=== PATIENT | female | born 1960 | race Caucasian/White ===

== ENCOUNTER 2023-12-20 09:47 | Inpatient (IN) | payer MEDICARE, OTHER ==
[2023-12-20] MEDS: HEPARIN SODIUM 1,000 UN/ML (10ML VL) IV ONE (09:53)
[2023-12-20] MEDS: METOPROLOL TARTRATE 5 MG/5 ML VIAL IVP STA (09:54)
[2023-12-20] MEDS: ATORVASTATIN 80 MG TAB PO STA (09:55)
[2023-12-20] MEDS ORDERED: HEPARIN SODIUM 1,000 UN/ML (10ML VL) ONE (10:00)
[2023-12-20] MEDS ORDERED: fentaNYL (PF) 50 MCG/ML 2 ML AMP ONE (10:00)
[2023-12-20] MEDS ORDERED: NALOXONE 0.4 MG/ML 1 ML VIAL IV PRN (10:02)
[2023-12-20] MEDS ORDERED: IPRATROPIUM-ALBUTEROL 3 ML NEB INHALATION PRN ×2 (10:02→13:14)
--- NOTE | 2023-12-20 10:02 | ED ---
General Adult HPI - General Chief complaint: Arrhythmia/Palpitations Stated complaint: Stemi Time Seen by Provider: 12/20/23 09:50 Source: patient Mode of arrival: EMS Limitations: no limitations - History of Present Illness Initial comments: 63-year-old female with reported history of COPD not on home O2 who presents the emergency department with flulike symptoms. She reports that she started having chest pain on Sunday which did alleviate. She has been reporting nausea, fatigue, fevers. Chest pain got worse again this morning and patient became short of breath. EMS found the patient to have an oxygen saturation of 88%. She is a current smoker. Denies any cardiac disease. EKG completed which demonstrated ST segment elevation. Patient found to be in A-fib and denies a history of. No sick contacts. Patient did receive 3 SL nitro, 324 chewable aspirin and 4 of Zofran prior to hospital arrival - Related Data Allergies Allergy/AdvReac Type Severity Reaction Status Date / Time No Known Allergies Allergy Verified 12/20/23 09:57 Review of Systems ROS Statement: Those systems with pertinent positive or pertinent negative responses have been documented in the HPI. ROS Other: All systems not noted in ROS Statement are negative. Past Medical History Past Medical History: COPD Additional Past Medical History / Comment(s): neuropathy History of Any Multi-Drug Resistant Organisms: None Reported Past Surgical History: Orthopedic Surgery Past Psychological History: No Psychological Hx Reported Smoking Status: Current every day smoker Past Alcohol Use History: None Reported Past Drug Use History: None Reported General Exam Limitations: no limitations General appearance: alert, cachectic, other (ashen) Head exam: Present: atraumatic, normocephalic, normal inspection Eye exam: Present: normal appearance, PERRL, EOMI. Absent: scleral icterus, conjunctival injection, periorbital swelling ENT exam: Present: normal exam, mucous membranes moist Neck exam: Present: normal inspection. Absent: tenderness, meningismus, lymphadenopathy Respiratory exam: Present: decreased breath sounds. Absent: respiratory distress, wheezes, rales, rhonchi, stridor Cardiovascular Exam: Present: tachycardia, irregular rhythm, normal heart sounds. Absent: systolic murmur, diastolic murmur, rubs, gallop, clicks GI/Abdominal exam: Present: soft, normal bowel sounds. Absent: distended, tenderness, guarding, rebound, rigid Extremities exam: Present: normal inspection, full ROM, normal capillary refill. Absent: tenderness, pedal edema, joint swelling, calf tenderness Back exam: Present: normal inspection Neurological exam: Present: alert, oriented X3, CN II-XII intact Psychiatric exam: Present: normal affect, normal mood Skin exam: Present: warm, dry, intact, normal color. Absent: rash Course Vital Signs 12/20/23 09:49 Temperature 97.4 F L Pulse Rate 134 H Respiratory 20 Rate Blood Pressure 132/106 O2 Sat by Pulse 93 L Oximetry Medical Decision Making - Medical Decision Making Was pt. sent in by a medical professional or institution (, PA, DATA ABSTRACTOR, urgent care, hospital, or prison...) When possible be specific @ -No Did you speak to anyone other than the patient for history (EMS, parent, family, police, friend...)? What history was obtained from this source @ -Spoke with the EMS for history Did you review nursing and triage notes (agree or disagree)? Why? @ -I reviewed and agree with nursing and triage notes Were old charts reviewed (outside hosp., previous admission, EMS record, old EKG, old radiological studies, urgent care reports/EKG's, prison records)? Report findings @ -No old charts were reviewed Differential Diagnosis (chest pain, altered mental status, abdominal pain women, abdominal pain men, vaginal bleeding, weakness, fever, dyspnea, syncope, headache, dizziness, GI bleed, back pain, seizure, CVA, palpatations, mental health, musculoskeletal)? @ -Differential Chest Pain: Stable Angina, Unstable Angina, STEMI, NSTEMI Aortic Dissection, Pneumothorax, Musculoskeletal, Esophageal Spasm GERD, Cholecystitis, Pancreatitis, Zoster, this is not meant to be an all-inclusive list. EKG interpreted by me (3pts min.). @ -Yes and demonstrates tachycardia, possible atrial flutter with a rate of 135. QRS 88. QTc of 385. ST segment elevation V3V6, 2, 3, aVF X-rays interpreted by me (1pt min.). @ -None done CT interpreted by me (1pt min.). @ -None done U/S interpreted by me (1pt. min.). @ -None done What testing was considered but not performed or refused? (CT, X-rays, U/S, labs)? Why? @ -None What meds were considered but not given or refused? Why? @ -None Did you discuss the management of the patient with other professionals (professionals i.e. , PA, DATA ABSTRACTOR, lab, RT, psych nurse, transition social worker, contingents supervisor, teacher, supervisory cbp officer, adult protective caseworker)? Give summary @ -Spoke with Dr. Yi who is in the emergency department to evaluate the patient Was smoking cessation discussed for >3mins.? @ -No Was critical care preformed (if so, how long)? @ -40 minutes for STEMI management Were there social determinants of health that impacted care today? How? (Homelessness, low income, unemployed, alcoholism, drug addiction, transportation, low edu. Level, literacy, decrease access to med. care, [facility], rehab)? @ -No Was there de-escalation of care discussed even if they declined (Discuss DNR or withdrawal of care, Hospice)? DNR status @ -No What co-morbidities impacted this encounter? (DM, HTN, Smoking, COPD, CAD, Cancer, CVA, ARF, Chemo, Hep., AIDS, mental health diagnosis, sleep apnea, morbid obesity)? @ -Tobacco abuse, COPD Was patient admitted / discharged? Hospital course, mention meds given and route, prescriptions, significant lab abnormalities, going to OR and other pertinent info. @ -EKG transmitted by EMS. STEMI activation completed prior to hospital arrival. Dr. Yi is in the emergency department during the patient's arrival. She is placed in trauma 2. Hooked on continuous pulse ox and cardiac monitoring. Patient saturating 96% on 3 L. IV is established. Laboratory studies are conducted. Patient continues to have ST segment elevation on EKG. Risks and benefits of immediate catheterization are discussed. Patient was agreeable to this and thus signed consent. She was given 80 mg of atorvastatin, 5 mg of IV Lopressor and 4000 units of heparin as she has no contraindications. I did speak with Dr. Modi for the admission. Patient was taken up to [facility] in stable condition Undiagnosed new problem with uncertain prognosis? @ -No Drug Therapy requiring intensive monitoring for toxicity (Heparin, Nitro, Insulin, Cardizem)? @ -heparin Were any procedures done? @ -No Diagnosis/symptom? @ -Chest pain, STEMI, hypoxic respiratory failure Acute, or Chronic, or Acute on Chronic? @ -Acute Uncomplicated (without systemic symptoms) or Complicated (systemic symptoms)? @ -Complicated Side effects of treatment? @ -No Exacerbation, Progression, or Severe Exacerbation? @ -Bleeding Poses a threat to life or bodily function? How? (Chest pain, [place], [place], pneumonia, PE, COPD, DKA, ARF, appy, cholecystitis, CVA, Diverticulitis, Homicidal, Suicidal, threat to staff... and all critical care pts) @ -Yes as patient is having a STEMI Disposition Clinical Impression: STEMI (ST elevation myocardial infarction), Hypoxia, Afib Disposition: ADMITTED IP TO THIS [facility] Condition: Serious Is patient prescribed a controlled substance at d/c from ED?: No Time of Disposition: 10:02 Decision to Admit Reason: Admit from EC Decision Date: 12/20/23 Decision Time: 10:02
[2023-12-20] MEDS: MIDAZOLAM 2 MG/2 ML VIAL IVP ONE (10:11)
[2023-12-20] MEDS: LIDOCAINE 1% INJ 10MG/ML (20 ML MDV) SQ ONE (10:13)
[2023-12-20] MEDS: VERAPAMIL SYRINGE (5 MG/10 ML) INTRAARTER ONE (10:15)
--- NOTE | 2023-12-20 10:23 | P.CRDCN ---
History of Present Illness Reason for Consult (text): STEMI History of present illness: This is a 63-year-old female with past medical history of tobacco use. No previous cardiac history. Patient developed chest pain on Sunday but today it became much worse. She has had a fever and vomiting at home. She is resides in [place] but is here visiting her brother. EMS was called and patient was given aspirin 324 mg and 3 nitroglycerin. Pain is a #4. She also received Zofran. Blood pressure 131/103, sinus tachycardia in the 140s. EKG: Sinus with ST elevation in inferior and lateral leads Home cardiac medications: None Review Of Systems: At the time of my exam: CONSTITUTIONAL: Reports fever or chills. HEENT: Denies blurred vision, vision changes, or eye pain. Denies hemoptysis CARDIOVASCULAR: Reports chest pain. Denies orthopnea. Denies PND. Denies palpitations RESPIRATORY: Denies shortness of breath. GASTROINTESTINAL: Denies abdominal pain. Reports nausea or vomiting. HEMATOLOGIC: Denies bleeding disorders. GENITOURINARY: Denies any blood in urine. SKIN: Denies puritis. Denies rash. Physical examination: Gen: This is a thin 63-year-old female appears to be quite uncomfortable and ill-appearing VS: reviewed HEENT: Head is atraumatic, normocephalic. Pupils equal, round. Sclerae is anicteric. NECK: Supple. No JVD. LUNGS: No wheezes or rhonchi. No intercostal retractions. HEART: Regular rate and rhythm. Tachycardic ABDOMEN: Soft No tenderness. EXTREMITIES: No pedal edema. No calf tenderness. NEUROLOGICAL: Patient is awake, alert and oriented x3. Assessment: STEMI Hypertension Tobacco use and dependence Plan: Patient will be taken for urgent LHC with Dr. Vann. Obtain 2-D echocardiogram and Doppler study to assess cardiac structure and function Further recommendations to follow based upon clinical course Thank you kindly for this consultation. Nurse practitioner note has been reviewed, I agree with documented findings and plan of care. Patient was seen and examined. Medications and Allergies Allergies Allergy/AdvReac Type Severity Reaction Status Date / Time No Known Allergies Allergy Verified 12/20/23 09:57
[2023-12-20] MEDS: IOPAMIDOL-370 200ML BTL INJ ONE (10:26)
[2023-12-20] MEDS: IV FLUID CONTINUATION 450 ML IV ONE (10:27)
--- NOTE | 2023-12-20 10:32 | P.CARDCATH ---
Date of Procedure: 12/20/23 Anesthesia: MAC Description of Procedure: Indication: Acute inferolateral myocardial infarction 63-year-old lady who has been feeling poorly for the last 3 days developed progressively worsening chest pain that was suddenly severe at this morning called the EMS and came to the ER as a STEMI. An EKG transmitted from the field showed sinus tachycardia with ST segment elevation in the inferolateral leads. I evaluated the patient in the emergency room she was still having chest d iscomfort while the EKG changes have improved somewhat. I advised her to undergo cardiac catheterization for further evaluation and I explained to her risk benefits and alternatives. Procedure note: After obtaining informed consent left heart catheterization and coronary angiogram were performed via the right radial artery using standard Justice catheters patient tolerated the procedure well without any Optivate complications patient will have a TR band for hemostasis. Patient received heparin already in the emergency room and received verapamil per protocol. Right radial artery access was obtained using Seldinger technique 6 Romanian sheath was placed catheters and wires were floated to the ascending aorta under fluoroscopic guidance tolerated the procedure well without any obvious obvious immediate complications total sedation time was 10 minutes. Findings: Hemodynamics left ventricular end-diastolic pressure is 22 mm there is no significant gradient across aortic valve #2 left ventriculogram left ventricular arm is not performed #3 angiographic data: Right coronary artery is a large dominant vessel and is free of significant stenosis left main coronary artery is a normal size vessel and is free of disease divides into left anterior descending coronary artery and circumflex coronary artery circumflex coronary artery and its branches are free of significant stenosis LAD is a large vessel that wraps around the apex of the heart there is an area of plaque rupture with 30 to 40% stenosis just past the origin of the diagonal branch. Flow is somewhat sluggish in the LAD and on fluoroscopy left ventricle is not penelope vigorously in fact only the base of the ventricle is moving. Conclusions: Plaque rupture in the mid LAD without totally closed vessel. Angiographic data was reviewed by Dr. Wilson the on-call admissions director who felt that the patient does not need intervention of the LAD at this time and that her management is going to be with medical therapy. I will admit her to hospital obtain a 2D echo to evaluate LV function and aspirin beta-blockers Plavix statin and JUNIOR inhibitors. Prognosis is guarded
[2023-12-20 10:33] LABS: Basophils % (A) 0 %; Eosinophils % (A) 0 %; HCT 44.5 % (34.0-46.0); HGB 14.8 gm/dL (11.4-16.0); Lymphocytes # (A) 1.5 k/uL (1.0-4.8); Lymphocytes % (A) 6 %; MCH 32.1 pg (25.0-35.0); MCHC 33.2 g/dL (31.0-37.0); MCV 96.7 fL (80.0-100.0); Mean Platelet Volume 12.5; Monocytes # (A) 1.6 k/uL (0-1.0); Monocytes % (A) 6 %; Neutrophils # (A) 24.3 k/uL (1.3-7.7); Neutrophils % (A) 87 %; Platelet Count 251 k/uL (150-450); RBC 4.61 m/uL (3.80-5.40); RDW 12.7 % (11.5-15.5); WBC 27.8 k/uL (3.8-10.6)
[2023-12-20 10:51] LABS: ALT 23 U/L (4-34); AST 75 U/L (14-36); African American GFR (CKD) >90 (>60 ml/min/1.73 sqM); Albumin 4.5 g/dL (3.5-5.0); Alkaline Phosphatase 83 U/L (38-126); Anion Gap 12 mmol/L; Blood Urea Nitrogen 36 mg/dL (7-17); Calcium 10.9 mg/dL (8.4-10.2); Carbon Dioxide 28 mmol/L (22-30); Chloride 102 mmol/L (98-107); Glucose 206 mg/dL (74-99); Non-African American GFR(CKD) 83 (>60 ml/min/1.73 sqM); Potassium 3.3 mmol/L (3.5-5.1); Sodium 142 mmol/L (137-145); Total Bilirubin 0.9 mg/dL (0.2-1.3); Total Protein 7.6 g/dL (6.3-8.2)
[2023-12-20] MEDS: IV FLUID CONTINUATION 1,000 ML IV ONE (10:53)
[2023-12-20] MEDS: ONDANSETRON 4 MG/2 ML VIAL ONE (11:09)
[2023-12-20 11:45] LABS: Large Platelets Present; Stomatocytes Present
[2023-12-20] MEDS: CLOPIDOGREL 75 MG TAB PO STA (12:30)
[2023-12-20] MEDS: METOPROLOL TARTRATE 25 MG TAB PO STA (12:31)
--- NOTE | 2023-12-20 13:17 | P.HPIM ---
History of Present Illness H&P Date: 12/20/23 History of present illness; patient is a 63-year-old lady with past medical history significant for tobacco addiction, COPD who presented the hospital for chest pain and shortness of breath. Patient is a resident of [place] and is currently visiting his brother who lives in [place]. Patient stated that she was all right when on Sunday started experiencing chest pain that was central in location, intermittent, nonradiating. No aggravating or relieving factors for the chest pain. Chest pain did resolve Sunday but this morning she woke up with worsening chest pain. Patient also complaining of nausea and fatigue. There was no complaint of palpitation. Patient was complaining of shortness of breath. Patient also having fevers at home. Because of the symptoms, patient was brought to the ER Initial lab work done in the ER showed WBC 27.8, hemoglobin 14.8, platelet count 251, sodium 142, potassium 3.3, BUN 13, creatinine 0.77, glucose 206, calcium 10.9, AST 75, troponin 5.170 Influenza A not detected Influenza B not detected RSV not detected COVID-19 not detected EKG done in the ER showed heart rate of 135, ST segment elevation in leads II, III, aVF, V4 V5 and V6 Base Ply Hand was activated and patient was brought to Base [facility] Patient admitted to internal medicine service REVIEW OF SYSTEMS: CONSTITUTIONAL: No fever, no malaise, no fatigue. HEENT: No recent visual problems or hearing problems. Denied any sore throat. CARDIOVASCULAR: As mentioned above PULMONARY: As mentioned above GASTROINTESTINAL: No diarrhea, no nausea, no vomiting, no abdominal pain. NEUROLOGICAL: No headaches, no weakness, no numbness. HEMATOLOGICAL: Denies any bleeding or petechiae. GENITOURINARY: Denies any burning micturition, frequency, or urgency. MUSCULOSKELETAL/RHEUMATOLOGICAL: Denies any joint pain, swelling, or any muscle pain. ENDOCRINE: Denies any polyuria or polydipsia. The rest of the 14-point review of systems is negative. PHYSICAL EXAMINATION: GENERAL: The patient is alert and oriented x3, not in any acute distress. Well developed, well nourished. HEENT: Pupils are round and equally reacting to light. EOMI. No scleral icterus. No conjunctival pallor. Normocephalic, atraumatic. No pharyngeal erythema. No thyromegaly. CARDIOVASCULAR: S1 and S2 present. No murmurs, rubs, or gallops. PULMONARY: Chest is clear to auscultation, no wheezing or crackles. ABDOMEN: Soft, nontender, nondistended, normoactive bowel sounds. No palpable organomegaly. MUSCULOSKELETAL: No joint swelling or deformity. EXTREMITIES: No cyanosis, clubbing, or pedal edema. NEUROLOGICAL: Gross neurological examination did not reveal any focal deficits. SKIN: No rashes. Assessment and plan Acute inferior wall IN COPD Tobacco addiction Monitor vital signs Monitor CBC Monitor CMP Continue telemetry monitoring Serial troponin Ordered D-dimer Ordered 2D echo Currently on heparin Base Ply Hand activated. Cardiology consulted Labs and medication were reviewed.. Continue same treatment. Continue with symptomatic treatment. Resume home medication. Monitor labs and vitals. DVT and GI prophylaxis. Further recommendations as per clinical course of the patient Dictation was produced using [employer] dictation software. please excuse any grammatical, word or spelling errors. Past Medical History Past Medical History: COPD Additional Past Medical History / Comment(s): neuropathy History of Any Multi-Drug Resistant Organisms: None Reported Past Surgical History: Orthopedic Surgery Past Psychological History: No Psychological Hx Reported Smoking Status: Current every day smoker Past Alcohol Use History: None Reported Past Drug Use History: None Reported Medications and Allergies Allergies Allergy/AdvReac Type Severity Reaction Status Date / Time No Known Allergies Allergy Verified 12/20/23 09:57 Physical Exam Vitals: Vital Signs Temp Pulse Resp BP Pulse Ox 12/20/23 09:58 124 H 18 121/89 92 L 12/20/23 09:49 97.4 F L 134 H 20 132/106 93 L Intake and Output 12/19/23 12/20/23 12/20/23 22:59 06:59 14:59 Intake Total 100 Balance 100 Intake: IV 100 Other: Weight 52.163 kg Results CBC & Chem 7: 12/20/23 10:08 12/20/23 10:08 Labs: Abnormal Lab Results - Last 24 Hours (Table) 12/20/23 12/20/23 12/20/23 Range/Units 10:08 10:08 10:08 WBC 27.8 H (3.8-10.6) k/uL Neutrophils # 24.3 H (1.3-7.7) k/uL Monocytes # 1.6 H (0-1.0) k/uL Potassium 3.3 L (3.5-5.1) mmol/L BUN 36 H (7-17) mg/dL Glucose 206 H (74-99) mg/dL Calcium 10.9 H (8.4-10.2) mg/dL AST 75 H (14-36) U/L Troponin I 5.170 H* (0.000-0.034) ng/mL
[2023-12-20] MEDS: ACETAMINOPHEN TAB 500 MG TAB ONE (14:04)
--- NOTE | 2023-12-20 15:17 | XR ---
EXAMINATION TYPE: XR chest 2V DATE OF EXAM: 12/20/2023 3:12 PM CLINICAL INDICATION: Female, 63 years old with history of Shortness of breath; COMPARISON: None TECHNIQUE: XR chest 2V Frontal view of the chest. FINDINGS: Lungs/Pleura: Scattered subtle reticular and hazy opacities. No evidence of pneumothorax, focal conso lidation or pleural effusion. Pulmonary vascularity: Unremarkable. Heart/mediastinum: Cardiomediastinal silhouette is unremarkable. Musculoskeletal: No acute osseous pathology. There is fixation hardware in the lower cervical spine. IMPRESSION: Subtle scattered opacities which may represent an atypical pneumonia.
[2023-12-20 16:25] LABS: Partial Thromboplastin Time 23.3 sec (22.0-30.0); Prothrombin Time 10.8 sec (10.0-12.5)
[2023-12-20] MEDS: METOPROLOL TARTRATE 25 MG TAB PO SCH (17:12)
[2023-12-20] MEDS: POTASSIUM CHLORIDE ER 20 MEQ TAB.ER PO STA (17:12)
[2023-12-20] MEDS: HYDROcodone/APAP 5-325MG 1 EACH TAB PO PRN (17:13)
[2023-12-20] MEDS: ONDANSETRON 4 MG/2 ML VIAL IVP PRN (17:48)
[2023-12-20] MEDS: DOXYCYCLINE 100 MG in SODIUM CHLORIDE 0.9% 100 ML IVPB SCH (20:36)
[2023-12-20] MEDS: ATORVASTATIN 40 MG TAB PO SCH (20:36)
[2023-12-20] MEDS: SYMBICORT 80-4.5 MCG INHALER INHALATION SCH (20:49)
[2023-12-20 22:03] LABS: Appearance,Urine Clear (Clear); Bacteria,Urine Rare /hpf; Bilirubin,Urine Negative (Negative); Blood,Urine Moderate (Negative); Color,Urine Yellow; Glucose,Urine (UA) Negative (Negative); Ketones,Urine Negative (Negative); Leukocyte Esterase,Urine Negative (Negative); Mucus,Urine Rare /hpf; Nitrite,Urine Positive (Negative); PH, Urine 6.5 (5.0-8.0); Protein,Urine 3+ (Negative); RBC,Urine 6 /hpf (0-5); Squamous Epithelial Cell,Urine 1 /hpf (0-4); Urobilinogen,Urine <2.0 mg/dL (<2.0); WBC,Urine <1 /hpf (0-5)
[2023-12-20 22:08] LABS: Specific Gravity,Urine >1.050 (1.001-1.035)
--- NOTE | 2023-12-20 22:53 | CT ---
EXAMINATION TYPE: CT angio chest DATE OF EXAM: 12/20/2023 COMPARISON: Radiograph 12/20/2023 HISTORY: 63-year-old female Elevated dimer with chest pain TECHNIQUE: Contiguous axial scanning of the chest after the administration of 100 mL of Isovue 370. Coronal/sagittal MIP reconstructions performed. CT DLP: 206.2mGycm. Automatic exposure control utilized for a dose reduction. FINDINGS: The heart is upper limits of normal in size with trace anterior basilar pericardial fluid. No flatten ing of the interventricular septum though there is refluxing contrast into the hepatic veins. Aorta normal caliber with aberrant direct takeoff of the nondominant left vertebral artery directly f rom the aortic arch. Some scattered mediastinal and hilar lymph nodes measuring up to 1.6 cm particularly in the hilar reg ions. Satisfactory opacification of the pulmonary arterial system without evidence for pulmonary embolus. Dependent secretions within the lower trachea. Moderate diffuse bronchial wall thickening. Moderate to advanced upper lung emphysema. Some septal li claudia in the upper lungs. Multifocal groundglass change throughout the lungs, left greater than right. No pleural effusion. Nodular thickening left adrenal gland measuring up to 1.5 cm. Statistically representing an underlyin g adrenal adenoma. Bones: Levoconvex scoliosis centered along the upper third thoracic spine. IMPRESSION: 1. COPD with moderately advanced emphysema. No pulmonary embolus identified. 2. Multifocal patchy groundglass infiltrates throughout the lungs, left greater than right. 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 3. Scattered mediastinal and hilar lymphadenopathy measuring up to 1.6 cm likely reactive/post inflam matory. Three-month follow-up CT chest to ensure stability/resolution.
[2023-12-21 01:44] LABS: Chol/HDL Ratio 1.91 Ratio; LDL Cholesterol,Calculated 56.6 mg/dL (0.0-131.0)
[2023-12-21 08:22] LABS: Basophils % (A) 0 %; Eosinophils # (A) 0.1 k/uL (0-0.7); Eosinophils % (A) 0 %; HCT 43.7 % (34.0-46.0); HGB 14.2 gm/dL (11.4-16.0); Lymphocytes # (A) 1.7 k/uL (1.0-4.8); Lymphocytes % (A) 6 %; MCHC 32.4 g/dL (31.0-37.0); MCV 98.7 fL (80.0-100.0); Mean Platelet Volume 11.5; Monocytes # (A) 1.4 k/uL (0-1.0); Monocytes % (A) 5 %; Neutrophils % (A) 87 %; Platelet Count 234 k/uL (150-450); RBC 4.43 m/uL (3.80-5.40); RDW 12.5 % (11.5-15.5); WBC 27.6 k/uL (3.8-10.6)
[2023-12-21 08:43] LABS: ALT 28 U/L (4-34); AST 55 U/L (14-36); African American GFR (CKD) >90 (>60 ml/min/1.73 sqM); Albumin 3.5 g/dL (3.5-5.0); Alkaline Phosphatase 65 U/L (38-126); Anion Gap 4 mmol/L; Blood Urea Nitrogen 38 mg/dL (7-17); Calcium 9.7 mg/dL (8.4-10.2); Carbon Dioxide 27 mmol/L (22-30); Chloride 108 mmol/L (98-107); Glucose 142 mg/dL (74-99); Non-African American GFR(CKD) >90 (>60 ml/min/1.73 sqM); Potassium 3.8 mmol/L (3.5-5.1); Sodium 139 mmol/L (137-145); Total Bilirubin 0.7 mg/dL (0.2-1.3); Total Protein 6.2 g/dL (6.3-8.2)
[2023-12-21] MEDS: LOSARTAN 25 MG TAB PO SCH (09:09)
[2023-12-21] MEDS: CLOPIDOGREL 75 MG TAB PO SCH (09:09)
[2023-12-21] MEDS: ASPIRIN 81 MG PO SCH (09:09)
[2023-12-21] MEDS: METOPROLOL TARTRATE 25 MG TAB PO STA (09:24)
--- NOTE | 2023-12-21 10:31 | CA ---
Transthoracic Echo Report Name: Alida Helton Age: 63 Gender: F : 1960 Exam Date: 12/20/2023 10:43 Exam Location: [facility] Ht (in): 66 Wt (lb): 115 Ordering Physician: Gloria Rousseau Attending/Referring Phys: [id number], Onelia Carousel Attendant Bethany Narayan RDCS Procedure CPT: Indications: LVF Cardiac Hx: Technical Quality: Technically difficult study Contrast 1: Definity Total Dose (mL): 2 Contrast 2: Total Dose (mL): MEASUREMENTS (Male / Female) Normal Values 2D ECHO LVOT Diameter 2.0 cm LV Diastolic Volume MOD BP 136.7 cm??? 67 - 155 / 56 - 104 cm??? LV Systolic Volume MOD BP 100.0 cm??? 22 - 58 / 19 - 49 cm??? LV Ejection Fraction MOD BP 26.9 % >= 55 % LV Cardiac Index MOD BP 2110.4 cm???/min???m??? LV Diastolic Volume MOD 4C 119.0 cm??? LV Systolic Volume MOD 4C 92.6 cm??? LV Ejection Fraction MOD 4C 22.1 % LV Cardiac Index MOD 4C 1512.3 cm???/min???m??? LV Diastolic Length 4C 7.3 cm LV Systolic Length 4C 7.2 cm LV Diastolic Volume MOD 2C 141.6 cm??? LV Systolic Volume MOD 2C 107.3 cm??? LV Ejection Fraction MOD 2C 24.2 % LV Cardiac Index MOD 2C 1969.2 cm???/min???m??? LV Diastolic Length 2C 8.2 cm LV Systolic Length 2C 7.2 cm LA Volume 25.8 cm??? 18 - 58 / 22 - 52 cm??? LA Volume Index 16.7 cm???/m??? 16 - 28 cm???/m??? M-MODE LV Diastolic Diameter MM 5.2 cm 4.2 - 5.9 / 3.9 - 5.3 cm LV Systolic Diameter MM 4.4 cm LV Cardiac Index MM Teich 2597.3 cm???/min???m??? IVS Diastolic Thickness MM 0.9 cm 0.6 - 1.0 / 0.6 - 0.9 cm LVPW Diastolic Thickness MM 1.2 cm 0.6 - 1.0 / 0.6 - 0.9 cm LV Relative Wall Thickness MM 0.4 0.24 - 0.42 / 0.22 - 0.42 LV Mass Index MM 137.4 g/m??? 49 - 115 / 43 - 95 g/m??? DOPPLER AV Peak Velocity 61.9 cm/s AV Peak Gradient 1.5 mmHg AV Mean Velocity 42.1 cm/s AV Mean Gradient 0.8 mmHg AV Velocity Time Integral 8.1 cm LVOT Peak Velocity 48.7 cm/s LVOT Peak Gradient 0.9 mmHg LVOT Velocity Time Integral 8.1 cm LVOT Stroke Volume 24.3 cm??? LVOT Stroke Volume Index 15.4 ml/m??? LVOT Cardiac Index 1397.9 cm???/min???m??? AV Area Cont Eq vti 3.0 cm??? AV Area Cont Eq pk 2.4 cm??? TR Peak Velocity 354.0 cm/s TR Peak Gradient 50.1 mmHg Right Atrial Pressure 20.0 mmHg Pulmonary Artery Systolic Pressu 70.1 mmHg Right Ventricular Systolic Press 70.1 mmHg PV Peak Velocity 88.1 cm/s PV Peak Gradient 3.1 mmHg FINDINGS Left Ventricle Left ventricular ejection fraction is estimated at 20-25 %. Severely increased left ventricular mass. Mildly increased posterior wall thickness. Severely decreased fractional shortening. Severely decreased midwall fractional shortening. Severely increased left ventricular diastolic volume. Severely increased left ventricular systolic volume. Severely decreased left ventricular ejection fraction with regional variability. Right Ventricle Normal right ventricular size with reduced function. Severe pulmonary hypertension. Right Atrium Normal right atrial size. Left Atrium Severe left atrial dilatation. Mitral Valve Mitral valve thickened. No evidence for mitral valve prolapse. No mitral stenosis. Mild mitral regurgitation. Aortic Valve Trileaflet aortic valve. Aortic valve sclerosis. No aortic stenosis. No aortic regurgitation. Tricuspid Valve Structurally normal tricuspid valve. No tricuspid stenosis. Moderate tricuspid regurgitation. Pulmonic Valve Structurally normal pulmonic valve. No pulmonic stenosis. No pulmonic regurgitation. Pericardium No pericardial effusion. Aorta Aortic annulus normal. CONCLUSIONS Left ventricular ejection fraction 20-25% with mainly apical hypokinesis and basal sparing may be consistent with CAD versus Takotsubo's cardiomyopathy. RVSP 70 Mild mitral regurgitation Moderate tricuspid regurgitation No pericardial effusion Previewed by: Dr. Tera Can DO (Electronically Signed) Final Date: 21 December 2023 10:30
--- NOTE | 2023-12-21 13:00 | P.PN ---
Subjective Progress Note Date: 12/21/23 patient is a 63-year-old lady with past medical history significant for tobacco addiction, COPD who presented the hospital for chest pain and shortness of breath. Patient is a resident of [place] and is currently visiting his brother who lives in [place]. Patient stated that she was all right when on Sunday started experiencing chest pain that was central in location, intermittent, nonradiating. No aggravating or relieving factors for the chest pain. Chest pain did resolve Sunday but this morning she woke up with worsening chest pain. Patient also complaining of nausea and fatigue. There was no complaint of palpitation. Patient was complaining of shortness of breath. Patient also having fevers at home. Because of the symptoms, patient was brought to the ER Initial lab work done in the ER showed WBC 27.8, hemoglobin 14.8, platelet count 251, sodium 142, potassium 3.3, BUN 13, creatinine 0.77, glucose 206, calcium 10.9, AST 75, troponin 5.170 Influenza A not detected Influenza B not detected RSV not detected COVID-19 not detected EKG done in the ER showed heart rate of 135, ST segment elevation in leads II, III, aVF, V4 V5 and V6 [facility] was activated and patient was brought to [facility] Patient admitted to internal medicine service 12/20. Patient seen and examined. Cardiac cath done showed Plaque rupture in the mid LAD without totally closed vessel. Still complains of shortness of breath. Gets short of breath on exertion. CTA chest done showed bilateral pulmonary infiltrates. REVIEW OF SYSTEMS: CONSTITUTIONAL: No fever, no malaise,. CARDIOVASCULAR: No chest pain, no palpitations, no syncope. PULMONARY: As mentioned above GASTROINTESTINAL: No diarrhea, no nausea, no vomiting, no abdominal pain. NEUROLOGICAL: No headaches, no weakness, PHYSICAL EXAMINATION: GENERAL: The patient is alert and oriented x3, not in any acute distress. Ill looking HEENT: Pupils are round and equally reacting to light. EOMI. No scleral icterus. No conjunctival pallor. Normocephalic, atraumatic. No pharyngeal erythema. No thyromegaly. CARDIOVASCULAR: S1 and S2 present. No murmurs, rubs, or gallops. PULMONARY: Diminished breath sounds at bases bilaterally ABDOMEN: Soft, nontender, nondistended, normoactive bowel sounds. No palpable organomegaly. MUSCULOSKELETAL: No joint swelling or deformity. EXTREMITIES: No cyanosis, clubbing, or pedal edema. NEUROLOGICAL: Gross neurological examination did not reveal any focal deficits. SKIN: No rashes. Assessment and plan Acute inferior wall IA Takotsubo cardiomyopathy Bacterial pneumonia COPD Tobacco addiction Monitor vital signs Monitor CBC Monitor CMP Continue telemetry monitoring Cardiac cath done showed Plaque rupture in the mid LAD without totally closed vessel. Continue aspirin, Plavix, Lipitor Continue Lopressor 2D echo done showed LVEF of 25% with mainly apical hypokinesis could be consistent with coronary disease versus Takotsubo cardiomyopathy, mild mitral regurg, moderate tricuspid regurg Continue IV Rocephin and doxycycline Cardiology following Pulmonology consulted Labs and medication were reviewed.. Continue same treatment. Continue with symptomatic treatment. Resume home medication. Monitor labs and vitals. DVT and GI prophylaxis. Further recommendations as per clinical course of the patient Dictation was produced using [employer] dictation software. please excuse any grammatical, word or spelling errors. Objective - Vital Signs Vital signs: Vital Signs Temp 97.8 F 12/21/23 09:06 Pulse 125 H 12/21/23 09:06 Resp 20 12/21/23 09:06 BP 112/71 12/21/23 09:06 Pulse Ox 90 L 12/21/23 09:06 FiO2 Intake & Output 12/20/23 12/21/23 12/21/23 18:59 06:59 18:59 Intake Total 120 1080 Balance 120 1080 Weight 52.163 kg 25 kg Intake: IV 120 Invasive Line 1 10 Invasive Line 3 10 Oral 1080 Other: Voiding Method Diaper Diaper Diaper Incontinent Incontinent Incontinent # Voids 1 1 - Labs CBC & Chem 7: 12/21/23 07:56 12/21/23 07:56 Labs: Abnormal Lab Results - Last 24 Hours (Table) 12/20/23 12/20/23 12/20/23 Range/Units 10:08 10:08 10:08 WBC 27.8 H (3.8-10.6) k/uL Neutrophils # 24.3 H (1.3-7.7) k/uL Monocytes # 1.6 H (0-1.0) k/uL D-Dimer (<0.60) mg/L FEU Potassium 3.3 L (3.5-5.1) mmol/L Chloride (98-107) mmol/L BUN 36 H (7-17) mg/dL Glucose 206 H (74-99) mg/dL Calcium 10.9 H (8.4-10.2) mg/dL AST 75 H (14-36) U/L Troponin I 5.170 H* (0.000-0.034) ng/mL Total Protein (6.3-8.2) g/dL Triglycerides (0.00-149.00) mg/dL HDL Cholesterol (40.00-60.00) mg/dL Ur Specific [place] (1.001-1.035) Urine Protein (Negative) Urine Blood (Negative) Urine Nitrite (Negative) Urine RBC (0-5) /hpf Urine Bacteria (None) /hpf Urine Mucus (None) /hpf 12/20/23 12/20/23 12/20/23 Range/Units 10:08 13:48 19:25 WBC (3.8-10.6) k/uL Neutrophils # (1.3-7.7) k/uL Monocytes # (0-1.0) k/uL D-Dimer 0.60 H (<0.60) mg/L FEU Potassium (3.5-5.1) mmol/L Chloride (98-107) mmol/L BUN (7-17) mg/dL Glucose (74-99) mg/dL Calcium (8.4-10.2) mg/dL AST (14-36) U/L Troponin I (0.000-0.034) ng/mL Total Protein (6.3-8.2) g/dL Triglycerides 152.00 H (0.00-149.00) mg/dL HDL Cholesterol 96.00 H (40.00-60.00) mg/dL Ur Specific [place] >1.050 H (1.001-1.035) Urine Protein 3+ H (Negative) Urine Blood Moderate H (Negative) Urine Nitrite Positive H (Negative) Urine RBC 6 H (0-5) /hpf Urine Bacteria Rare H (None) /hpf Urine Mucus Rare H (None) /hpf 12/21/23 12/21/23 Range/Units 07:56 07:56 WBC 27.6 H (3.8-10.6) k/uL Neutrophils # 24.0 H (1.3-7.7) k/uL Monocytes # 1.4 H (0-1.0) k/uL D-Dimer (<0.60) mg/L FEU Potassium (3.5-5.1) mmol/L Chloride 108 H (98-107) mmol/L BUN 38 H (7-17) mg/dL Glucose 142 H (74-99) mg/dL Calcium (8.4-10.2) mg/dL AST 55 H (14-36) U/L Troponin I (0.000-0.034) ng/mL Total Protein 6.2 L (6.3-8.2) g/dL Triglycerides (0.00-149.00) mg/dL HDL Cholesterol (40.00-60.00) mg/dL Ur Specific [place] (1.001-1.035) Urine Protein (Negative) Urine Blood (Negative) Urine Nitrite (Negative) Urine RBC (0-5) /hpf Urine Bacteria (None) /hpf Urine Mucus (None) /hpf
[2023-12-21 13:49] VITALS: BMI 18.5
--- NOTE | 2023-12-21 14:55 | P.PN ---
Subjective Progress Note Date: 12/21/23 Reason for Consult (text): STEMI History of present illness: This is a 63-year-old female with past medical history of tobacco use. No previous cardiac history. Patient developed chest pain on Sunday but today it became much worse. She has had a fever and vomiting at home. She is resides in [place] but is here visiting her brother. EMS was called and patient was given aspirin 324 mg and 3 nitroglycerin. Pain is a #4. She also received Zofran. Blood pressure 131/103, sinus tachycardia in the 140s. EKG: Sinus with ST elevation in inferior and lateral leads Home cardiac medications: None 12/20 Yesterday, patient went for urgent cardiac catheterization with Dr. Yi which revealed plaque rupture in the mid LAD without totally close vessel with no plan for intervention. Echocardiogram reveals EF of 20 to 25% with apical hypokinesis and basal sparing may be consistent with CAD versus Takotsubo's cardiomyopathy. RVSP 70, mild mitral regurgitation, moderate TR. Patient complains of vague symptoms of stomach ache and sore throat. She remains tachycardic today 110-1 120s. Yesterday, patient was started on aspirin, Lipitor, Plavix, losartan and Lopressor 25 mg 3 times daily. Physical examination: Gen: This is a thin 63-year-old female appears to be quite uncomfortable and ill-appearing VS: reviewed HEENT: Head is atraumatic, normocephalic. Pupils equal, round. Sclerae is anicteric. NECK: Supple. No JVD. LUNGS: No wheezes or rhonchi. No intercostal retractions. HEART: Regular rate and rhythm. Tachycardic ABDOMEN: Soft No tenderness. EXTREMITIES: No pedal edema. No calf tenderness. NEUROLOGICAL: Patient is awake, alert and oriented x3. Assessment: Inferior lateral STEMI Cardiomyopathy possible Takotsubo Hypertension Tobacco use and dependence Plan: Continue patient on the following cardiac medications: Aspirin 81 mg daily, Lipitor 40 mg daily, Plavix 75 mg daily, losartan 25 mg daily Increase Lopressor to 50 mg twice daily, additional 25 mg now Further recommendations to follow based upon clinical course Nurse practitioner note has been reviewed, I agree with documented findings and plan of care. Patient was seen and examined. Objective - Vital Signs Vital signs: Vital Signs Temp 97.8 F 12/21/23 09:06 Pulse 125 H 12/21/23 09:06 Resp 20 12/21/23 09:06 BP 112/71 12/21/23 09:06 Pulse Ox 90 L 12/21/23 09:06 FiO2 Intake & Output 12/20/23 12/21/23 12/21/23 18:59 06:59 18:59 Intake Total 120 1080 Balance 120 1080 Weight 52.163 kg 25 kg Intake: IV 120 Invasive Line 1 10 Invasive Line 3 10 Oral 1080 Other: Voiding Method Diaper Diaper Incontinent Incontinent # Voids 1 1 - Labs CBC & Chem 7: 12/21/23 07:56 12/21/23 07:56 Labs: Abnormal Lab Results - Last 24 Hours (Table) 12/20/23 12/20/23 12/20/23 Range/Units 10:08 10:08 10:08 WBC 27.8 H (3.8-10.6) k/uL Neutrophils # 24.3 H (1.3-7.7) k/uL Monocytes # 1.6 H (0-1.0) k/uL D-Dimer (<0.60) mg/L FEU Potassium 3.3 L (3.5-5.1) mmol/L Chloride (98-107) mmol/L BUN 36 H (7-17) mg/dL Glucose 206 H (74-99) mg/dL Calcium 10.9 H (8.4-10.2) mg/dL AST 75 H (14-36) U/L Troponin I 5.170 H* (0.000-0.034) ng/mL Total Protein (6.3-8.2) g/dL Triglycerides (0.00-149.00) mg/dL HDL Cholesterol (40.00-60.00) mg/dL Ur Specific [place] (1.001-1.035) Urine Protein (Negative) Urine Blood (Negative) Urine Nitrite (Negative) Urine RBC (0-5) /hpf Urine Bacteria (None) /hpf Urine Mucus (None) /hpf 12/20/23 12/20/23 12/20/23 Range/Units 10:08 13:48 19:25 WBC (3.8-10.6) k/uL Neutrophils # (1.3-7.7) k/uL Monocytes # (0-1.0) k/uL D-Dimer 0.60 H (<0.60) mg/L FEU Potassium (3.5-5.1) mmol/L Chloride (98-107) mmol/L BUN (7-17) mg/dL Glucose (74-99) mg/dL Calcium (8.4-10.2) mg/dL AST (14-36) U/L Troponin I (0.000-0.034) ng/mL Total Protein (6.3-8.2) g/dL Triglycerides 152.00 H (0.00-149.00) mg/dL HDL Cholesterol 96.00 H (40.00-60.00) mg/dL Ur Specific [place] >1.050 H (1.001-1.035) Urine Protein 3+ H (Negative) Urine Blood Moderate H (Negative) Urine Nitrite Positive H (Negative) Urine RBC 6 H (0-5) /hpf Urine Bacteria Rare H (None) /hpf Urine Mucus Rare H (None) /hpf 12/21/23 12/21/23 Range/Units 07:56 07:56 WBC 27.6 H (3.8-10.6) k/uL Neutrophils # 24.0 H (1.3-7.7) k/uL Monocytes # 1.4 H (0-1.0) k/uL D-Dimer (<0.60) mg/L FEU Potassium (3.5-5.1) mmol/L Chloride 108 H (98-107) mmol/L BUN 38 H (7-17) mg/dL Glucose 142 H (74-99) mg/dL Calcium (8.4-10.2) mg/dL AST 55 H (14-36) U/L Troponin I (0.000-0.034) ng/mL Total Protein 6.2 L (6.3-8.2) g/dL Triglycerides (0.00-149.00) mg/dL HDL Cholesterol (40.00-60.00) mg/dL Ur Specific [place] (1.001-1.035) Urine Protein (Negative) Urine Blood (Negative) Urine Nitrite (Negative) Urine RBC (0-5) /hpf Urine Bacteria (None) /hpf Urine Mucus (None) /hpf
[2023-12-21] MEDS ORDERED: ALBUTEROL HFA INHALER INHALATION PRN (15:02)
--- NOTE | 2023-12-21 15:02 | P.CNPUL ---
History of Present Illness Consult date: 12/21/23 Requesting physician: Mary Farris Reason for consult: dyspnea, COPD Chief complaint: Chest pain, nausea, emesis. History of present illness: Pulmonary consult dated December 21, 2023. 63-year-old female who presented to the emergency department on December 19, complaining of chest discomfort, nausea, and emesis. She apparently started having some chest pain a few days back. She also had nausea, fatigue, and the chest pain got worse, and she was brought to the ER, by EMS. She apparently was also found to have a saturations of 88%. We were consulted for possible underlying COPD. In the emergency room, the patient was noted to have a ST segment elevation, and, elevated troponin levels. She was taken to the catheterization laboratory and was found to have a ruptured plaque, the mid LAD. Medical management was recommended, by cardiology. Her chest pain was going on for at least 3 days. At home, the patient uses Valium, [place], oxycodone, Lyrica, and an albuterol inhaler. She apparently was an outside hospital recently, and had a pulmonary function test, was told that she had loss of about 10% lung function. When asked about her smoking history, she is only smoked for 10 years, at 1 pack every 3 days. It is doubtful that if she smoked this much, she has any significant COPD. The patient is getting oxygen, by nasal cannula, at 3 L, saturations are 95%. He is also getting saline at 15 cc an hour. She was placed on DuoNebs, Symbicort, Rocephin, and doxycycline. We have ordered a N-terminal proBNP, and a procalcitonin level. Her chest x-ray was not particularly impressive, and her CAT scan shows some patchy infiltrates, left greater than right. We query as to whether or not she may have aspirated, or could these infiltrates actually represent some mild pulmonary edema. She does not appear to have much in the way of pneumonic symptoms. White count is 27.6, hemoglobin 14.2, hematocrit 43.7, and platelet count 234,000. Her D-dimer was 0.6. Sodium 139, potassium 3.8, chlorides 108, CO2 27, BUN and creatinine were 38 and 0.67. The patient's troponin was 5.170. There is no N-terminal pro BNP or procalcitonin level. Studies for influenza, RSV, coronavirus are all negative. Review of Systems REVIEW OF SYSTEMS: CONSTITUTIONAL: Weakness and fatigue. NEUROLOGIC: [ Negative.] HEENT: [ Negative.] CARDIAC: Chest pain. PULMONARY: [Negative.] GI: Nausea, emesis. : [Negative.] RHEUMATOLOGIC: [ Negative.] IMMUNOLOGIC: [ Negative.] ENDOCRINE: [Negative. ] DERMATOLOGIC: [Negative.] Past Medical History Past Medical History: COPD Additional Past Medical History / Comment(s): neuropathy History of Any Multi-Drug Resistant Organisms: None Reported Past Surgical History: Orthopedic Surgery Past Psychological History: No Psychological Hx Reported Smoking Status: Current every day smoker Past Alcohol Use History: None Reported Past Drug Use History: None Reported Medications and Allergies Home Medications Medication Instructions Recorded Confirmed Type HYDROcodone/APAP 10-325MG [[place] 1 tab PO 5XD PRN 12/20/23 12/20/23 History 10-325] Pregabalin [Lyrica] 150 mg PO BID 12/20/23 12/20/23 History diazePAM [Valium] 5 mg PO BID 12/20/23 12/20/23 History oxyCODONE HCL [oxyCODONE HCL ER] 40 mg PO Q12H 12/20/23 12/20/23 History Allergies Allergy/AdvReac Type Severity Reaction Status Date / Time No Known Allergies Allergy Verified 12/20/23 15:55 Physical Exam Osteopathic Statement: *. No significant issues noted on an osteopathic structural exam other than those noted in the History and Physical/Consult. Vitals: Vital Signs Temp Pulse Resp BP BP Pulse Ox 12/21/23 11:13 97.6 F 78 22 101/65 95 12/21/23 09:06 97.8 F 125 H 20 112/71 90 L 12/21/23 08:12 90 L 12/21/23 08:00 97.7 F 116 H 120/74 12/21/23 04:00 128 H 16 127/81 90 L 12/21/23 00:00 98.1 F 106 H 16 112/77 93 L 12/20/23 20:00 98.7 F 116 H 18 137/93 98 12/20/23 16:59 98.6 F 114 H 22 120/84 94 L Intake and Output 12/20/23 12/21/23 12/21/23 22:59 06:59 14:59 Intake Total 550 540 Balance 550 540 Intake: IV 10 Invasive Line 3 10 Oral 540 540 Other: Voiding Method Diaper Diaper Diaper Incontinent Incontinent Incontinent # Voids 1 0 Weight 25 kg 52.1 kg No acute distress, oriented 3. On 3 L nasal cannula with saturations of 95%. HEENT examination is grossly unremarkable. Mucous membranes are moist. No oral lesions. Neck supple. Full range of motion. No adenopathy thyromegaly or neck vein distention. Cardiovascular examination reveals regular rhythm rate. S1-S2 normal. No S3 or S4. No discernible murmur noted. Heart rate 78 bpm. Lungs reveal mostly clear breath sound. Minimal rhonchi. No wheezes or crackles. Breath sounds equal. Abdomen soft bowel sounds are heard. No masses or tenderness. Extremities are intact. No cyanosis clubbing or edema. Skin is without rash or lesion. Neurologic examination is brief but nonfocal. Results - Laboratory Findings CBC and BMP: 12/21/23 07:56 12/21/23 07:56 PT/INR, D-dimer PT 10.8 sec (10.0-12.5) 12/20/23 15:23 INR 1.0 (<1.2) 12/20/23 15:23 D-Dimer 0.60 mg/L FEU (<0.60) H 12/20/23 13:48 Abnormal lab findings: Abnormal Labs 12/20/23 12/20/23 12/20/23 10:08 10:08 10:08 WBC 27.8 H Neutrophils # 24.3 H Monocytes # 1.6 H D-Dimer Potassium 3.3 L Chloride BUN 36 H Glucose 206 H Calcium 10.9 H AST 75 H Troponin I 5.170 H* Total Protein Triglycerides HDL Cholesterol Ur Specific [place] Urine Protein Urine Blood Urine Nitrite Urine RBC Urine Bacteria Urine Mucus 12/20/23 12/20/23 12/20/23 10:08 13:48 19:25 WBC Neutrophils # Monocytes # D-Dimer 0.60 H Potassium Chloride BUN Glucose Calcium AST Troponin I Total Protein Triglycerides 152.00 H HDL Cholesterol 96.00 H Ur Specific [place] >1.050 H Urine Protein 3+ H Urine Blood Moderate H Urine Nitrite Positive H Urine RBC 6 H Urine Bacteria Rare H Urine Mucus Rare H 12/21/23 12/21/23 07:56 07:56 WBC 27.6 H Neutrophils # 24.0 H Monocytes # 1.4 H D-Dimer Potassium Chloride 108 H BUN 38 H Glucose 142 H Calcium AST 55 H Troponin I Total Protein 6.2 L Triglycerides HDL Cholesterol Ur Specific [place] Urine Protein Urine Blood Urine Nitrite Urine RBC Urine Bacteria Urine Mucus - Diagnostic Findings Chest x-ray: image reviewed CT scan - chest: image reviewed Assessment and Plan Assessment: ST segment elevation myocardial infarction, with evidence of a ruptured plaque, in the mid LAD, on catheterization performed on December 19. Doubt significant COPD, as the patient only smoked for 10 years, at 1 pack every 3 days. Recent PFTs, showing about 10% lung volume loss. Echocardiogram showing 20 to 25% ejection fraction. Diffuse bilateral left greater than right infiltrates on CT scan, of unclear etiology. Possible pneumonia. History of neuropathy. Ongoing tobacco use. Plan: Plan dated December 21, 2023. The patient is on DuoNeb and Symbicort. Those will be discontinued in favor of albuterol, inhaler, use 2 puffs as needed. Will continue the Rocephin and doxycycline for right now. We have ordered a procalcitonin level. We have also asked for an N-terminal proBNP level. Labs, x-rays, medications are reviewed. Additional recommendations and suggestions are forthcoming. We will continue to follow the patient. Prognosis is guarded. Time with Patient: Greater than 30
[2023-12-21] MEDS: ACETAMINOPHEN TAB 325 MG TAB PO PRN (16:53)
[2023-12-21] MEDS: METOPROLOL TARTRATE 50 MG TAB PO SCH (20:16)
--- NOTE | 2023-12-22 10:13 | P.PN ---
Subjective Progress Note Date: 12/22/23 Reason for Consult (text): STEMI History of present illness: This is a 63-year-old female with past medical history of tobacco use. No previous cardiac history. Patient developed chest pain on Sunday but today it became much worse. She has had a fever and vomiting at home. She is resides in [place] but is here visiting her brother. EMS was called and patient was given aspirin 324 mg and 3 nitroglycerin. Pain is a #4. She also received Zofran. Blood pressure 131/103, sinus tachycardia in the 140s. EKG: Sinus with ST elevation in inferior and lateral leads Home cardiac medications: None 12/20 Yesterday, patient went for urgent cardiac catheterization with Dr. Yi which revealed plaque rupture in the mid LAD without totally close vessel with no plan for intervention. Echocardiogram reveals EF of 20 to 25% with apical hypokinesis and basal sparing may be consistent with CAD versus Takotsubo's cardiomyopathy. RVSP 70, mild mitral regurgitation, moderate TR. Patient complains of vague symptoms of stomach ache and sore throat. She remains tachycardic today 110-1 120s. Yesterday, patient was started on aspirin, Lipitor, Plavix, losartan and Lopressor 25 mg 3 times daily. 12/21 Patient states she doesn't feel well with [place], neck ache which are all chronic. Discussed results of Echo with patient. She states she has been under a lot of stress from children. Blood pressure 105/56, heart rate 88, pulse ox 95% on 3 L nasal cannula. Yesterday Lopressor was increased to 50 mg twice daily. Patient appears to be stable at this time. No chest pain. Physical examination: Gen: This is a thin 63-year-old female appears to be quite uncomfortable and ill-appearing VS: reviewed HEENT: Head is atraumatic, normocephalic. Pupils equal, round. Sclerae is anicteric. NECK: Supple. No JVD. LUNGS: No wheezes or rhonchi. No intercostal retractions. HEART: Regular rate and rhythm. Tachycardic ABDOMEN: Soft No tenderness. EXTREMITIES: No pedal edema. No calf tenderness. NEUROLOGICAL: Patient is awake, alert and oriented x3. Assessment: Inferior lateral STEMI Cardiomyopathy possible Takotsubo Hypertension Tobacco use and dependence Plan: Continue patient on the following cardiac medications: Aspirin 81 mg daily, Lipitor 40 mg daily, Plavix 75 mg daily, losartan 25 mg daily, Lopressor 50 mg twice daily Patient is cleared for discharge from cardiology. She may follow-up with a public policy coordinator in [place] in the next 1 to 2 weeks. Nurse practitioner note has been reviewed, I agree with documented findings and plan of care. Patient was seen and examined. Objective - Vital Signs Vital signs: Vital Signs Temp 98.1 F 12/22/23 08:00 Pulse 76 12/22/23 08:00 Resp 17 12/22/23 08:00 BP 105/56 12/22/23 08:00 Pulse Ox 95 12/22/23 08:00 FiO2 Intake & Output 12/21/23 12/22/23 12/22/23 18:59 06:59 18:59 Intake Total 540 Balance 540 Weight 52.1 kg Intake: Oral 540 Other: Voiding Method Diaper Diaper Incontinent Incontinent # Voids 1 1 - Labs CBC & Chem 7: 12/21/23 07:56 12/21/23 07:56
--- NOTE | 2023-12-22 11:35 | P.PN ---
Subjective Progress Note Date: 12/22/23 63-year-old female who presented to the emergency department on December 19, complaining of chest discomfort, nausea, and emesis. She apparently started having some chest pain a few days back. She also had nausea, fatigue, and the chest pain got worse, and she was brought to the ER, by EMS. She apparently was also found to have a saturations of 88%. We were consulted for possible underlying COPD. In the emergency room, the patient was noted to have a ST segment elevation, and, elevated troponin levels. She was taken to the catheterization laboratory and was found to have a ruptured plaque, the mid LAD. Medical management was recommended, by cardiology. Her chest pain was going on for at least 3 days. At home, the patient uses Valium, [place], oxycodone, Lyrica, and an albuterol inhaler. She apparently was an outside hospital recently, and had a pulmonary function test, was told that she had loss of about 10% lung function. When asked about her smoking history, she is only smoked for 10 years, at 1 pack every 3 days. It is doubtful that if she smoked this much, she has any significant COPD. The patient is getting oxygen, by nasal cannula, at 3 L, saturations are 95%. He is also getting saline at 15 cc an hour. She was placed on DuoNebs, Symbicort, Rocephin, and doxycycline. We have ordered a N-terminal proBNP, and a procalcitonin level. Her chest x-ray was not particularly impressive, and her CAT scan shows some patchy infiltrates, left greater than right. We query as to whether or not she may have aspirated, or could these infiltrates actually represent some mild pulmonary edema. She does not appear to have much in the way of pneumonic symptoms. White count is 27.6, hemoglobin 14.2, hematocrit 43.7, and platelet count 234,000. Her D-dimer was 0.6. Sodium 139, potassium 3.8, chlorides 108, CO2 27, BUN and creatinine were 38 and 0.67. The patient's troponin was 5.170. There is no N-terminal pro BNP or procalcitonin level. Studies for influenza, RSV, coronavirus are all negative. The patient is seen today December 22, 2023 in follow-up on the selective care unit. She is currently sitting up in bed. Awake and alert in no acute distress. She is maintaining O2 saturations in the 90s on 3 L/min per nasal cannula. Procalcitonin was negative at 0.28. Antibiotics will be discontinued. She had been treated with ceftriaxone and doxycycline. She is on normal saline at [facility]. Denies any further complaints of chest discomfort. No new labs today. Objective - Vital Signs Vital signs: Vital Signs Temp 98.1 F 12/22/23 08:00 Pulse 88 12/22/23 08:00 Resp 17 12/22/23 08:00 BP 105/56 12/22/23 08:00 Pulse Ox 95 12/22/23 08:00 FiO2 Intake & Output 12/21/23 12/22/23 12/22/23 18:59 06:59 18:59 Intake Total 540 Balance 540 Weight 52.1 kg Intake: Oral 540 Other: Voiding Method Diaper Diaper Diaper Incontinent Incontinent Incontinent # Voids 1 1 - Exam GENERAL EXAM: Alert, pleasant thin 63-year-old female on 3 L nasal cannula, comfortable in no apparent distress. HEAD: Normocephalic. EYES: Normal reaction of pupils, equal size. NOSE: Clear with pink turbinates. THROAT: No erythema or exudates. NECK: No masses, no JVD. CHEST: No chest wall deformity. LUNGS: Equal air entry with no crackles, wheeze, rhonchi or dullness. CVS: S1 and S2 normal with no audible murmur, regular rhythm. ABDOMEN: No hepatosplenomegaly, normal bowel sounds, no guarding or rigidity. SPINE: No scoliosis or deformity SKIN: No rashes CENTRAL NERVOUS SYSTEM: No focal deficits, tone is normal in all 4 extremities. EXTREMITIES: There is no peripheral edema. No clubbing, no cyanosis. Peripheral pulses are intact. - Labs CBC & Chem 7: 12/21/23 07:56 12/21/23 07:56 Assessment and Plan Assessment: ST segment elevation myocardial infarction, with evidence of a ruptured plaque, in the mid LAD, on catheterization performed on December 20, 2023. Doubt significant COPD, as the patient only smoked for 10 years, at 1 pack every 3 days. Recent PFTs, showing about 10% lung volume loss. Echocardiogram showing 20 to 25% ejection fraction. Diffuse bilateral left greater than right infiltrates on CT scan, of unclear etiology. Possible pneumonia. History of neuropathy. Ongoing tobacco use. Plan: The patient was seen and evaluated Medications reviewed Procalcitonin negative Antibiotics discontinued Titrate down/off the FiO2 Cleared for discharge once cleared by cardiology I have personally seen and examined the patient, performed the documentation and the assessment and plan as written. Number of minutes spent on the visit: 10.
--- NOTE | 2023-12-22 15:51 | P.PN ---
Subjective Progress Note Date: 12/22/23 Interval History: patient is a 63-year-old lady with past medical history significant for tobacco addiction, COPD who presented the hospital for chest pain and shortness of breath. Patient is a resident of [place] and is currently visiting his brother who lives in [place]. Patient stated that she was all right when on Sunday started experiencing chest pain that was central in location, intermittent, nonradiating. No aggravating or relieving factors for the chest pain. Chest pain did resolve Sunday but this morning she woke up with worsening chest pain. Patient also complaining of nausea and fatigue. There was no complaint of palpitation. Patient was complaining of shortness of breath. Patient also having fevers at home. Because of the symptoms, patient was brought to the ER Initial lab work done in the ER showed WBC 27.8, hemoglobin 14.8, platelet count 251, sodium 142, potassium 3.3, BUN 13, creatinine 0.77, glucose 206, calcium 10.9, AST 75, troponin 5.170 Influenza A not detected Influenza B not detected RSV not detected COVID-19 not detected EKG done in the ER showed heart rate of 135, ST segment elevation in leads II, III, aVF, V4 V5 and V6 Logistical Engineer was activated and patient was brought to Logistical Engineer Patient admitted to internal medicine service 12/20. Patient seen and examined. Cardiac cath done showed Plaque rupture in the mid LAD without totally closed vessel. Still complains of shortness of breath. Gets short of breath on exertion. CTA chest done showed bilateral pulmonary infiltrates. 12/21--patient was seen and examined today. Complaining of productive cough and shortness of breath. Pulmonary following, antibiotics discontinued as patient's procalcitonin was negative. Assessment and plan STEMIacute inferior wall DE Takotsubo cardiomyopathy Bacterial pneumonia--- finished antibiotics Doubt COPD: Tobacco addiction Deconditioning: Leukocytosis: Monitor vital signs Monitor labs Continue telemetry monitoring Cardiac cath done showed Plaque rupture in the mid LAD without totally closed vessel. Continue aspirin, Plavix, Lipitor, losartan Continue Lopressor 2D echo done showed LVEF of 25% with mainly apical hypokinesis could be consistent with coronary disease versus Takotsubo cardiomyopathy, mild mitral regurg, moderate tricuspid regurg Received several doxycyclinenow discontinued, procalcitonin negative, per pulmonary. e Cardiology following Pulmonology consulted PT/OT consulted DVT prophylaxis: SCD PHYSICAL EXAMINATION: GENERAL: The patient is A&O x3, NAD HEENT: EOMI, Sclerae anicteric, Moist Mucous membranes Neck: Supple, Non tender, No JVD CARDIOVASCULAR: S1, S2 present. No murmurs, rubs, or gallops. PULMONARY: Equal breath souds B/L, No wheezing, No crackles. ABDOMEN: Soft, nontender, nondistended, normoactive bowel sounds. No guarding or rebound tenderness. MUSCULOSKELETAL: No edema, No cyanosis. No clubbing. Normal ROM. Intact peripheral pulses. Skin; Warm. No rash. REVIEW OF SYSTEMS: CONSTITUTIONAL: No fever or chills. CARDIOVASCULAR: No chest pain, palpitations or syncope. PULMONARY: No shortness of breath, no cough, sore throat. GASTROINTESTINAL: No nausea, vomiting, diarrhea, abdominal pain. : No Dysuria, urgency, frequency. Extremities: No edema. NEUROLOGICAL: No headaches, no weakness, or numbness Dictation was produced using [employer] dictation software. please excuse any grammatical, word or spelling errors. Objective - Vital Signs Vital signs: Vital Signs Temp 98.1 F 12/22/23 15:16 Pulse 77 12/22/23 15:16 Resp 18 12/22/23 15:16 BP 126/71 12/22/23 15:16 Pulse Ox 94 L 12/22/23 15:16 FiO2 Intake & Output 12/21/23 12/22/23 12/22/23 18:59 06:59 18:59 Intake Total 540 118 Balance 540 118 Weight 52.1 kg Intake: Oral 540 118 Other: Voiding Method Diaper Diaper Diaper Incontinent Incontinent Incontinent # Voids 1 1 - Labs CBC & Chem 7: 12/21/23 07:56 12/21/23 07:56
[2023-12-22] MEDS: DOXYCYCLINE 100 MG CAP PO SCH (19:46)
[2023-12-23 08:00] LABS: Basophils % (A) 0 %; Eosinophils # (A) 0.1 k/uL (0-0.7); Eosinophils % (A) 1 %; HCT 41.3 % (34.0-46.0); HGB 13.8 gm/dL (11.4-16.0); Lymphocytes # (A) 2.5 k/uL (1.0-4.8); Lymphocytes % (A) 18 %; MCH 32.4 pg (25.0-35.0); MCHC 33.3 g/dL (31.0-37.0); MCV 97.1 fL (80.0-100.0); Mean Platelet Volume 11.2; Monocytes # (A) 0.7 k/uL (0-1.0); Monocytes % (A) 5 %; Neutrophils # (A) 9.9 k/uL (1.3-7.7); Neutrophils % (A) 73 %; Platelet Count 222 k/uL (150-450); RBC 4.26 m/uL (3.80-5.40); RDW 12.3 % (11.5-15.5); WBC 13.6 k/uL (3.8-10.6)
[2023-12-23 08:31] LABS: African American GFR (CKD) >90 (>60 ml/min/1.73 sqM); Anion Gap 2 mmol/L; Blood Urea Nitrogen 27 mg/dL (7-17); Calcium 9.2 mg/dL (8.4-10.2); Carbon Dioxide 28 mmol/L (22-30); Chloride 104 mmol/L (98-107); Glucose 110 mg/dL (74-99); Non-African American GFR(CKD) >90 (>60 ml/min/1.73 sqM); Potassium 3.6 mmol/L (3.5-5.1); Sodium 134 mmol/L (137-145)
--- NOTE | 2023-12-23 10:36 | P.PN ---
Subjective Progress Note Date: 12/23/23 63-year-old female who presented to the emergency department on December 19, complaining of chest discomfort, nausea, and emesis. She apparently started having some chest pain a few days back. She also had nausea, fatigue, and the chest pain got worse, and she was brought to the ER, by EMS. She apparently was also found to have a saturations of 88%. We were consulted for possible underlying COPD. In the emergency room, the patient was noted to have a ST segment elevation, and, elevated troponin levels. She was taken to the catheterization laboratory and was found to have a ruptured plaque, the mid LAD. Medical management was recommended, by cardiology. Her chest pain was going on for at least 3 days. At home, the patient uses Valium, [place], oxycodone, Lyrica, and an albuterol inhaler. She apparently was an outside hospital recently, and had a pulmonary function test, was told that she had loss of about 10% lung function. When asked about her smoking history, she is only smoked for 10 years, at 1 pack every 3 days. It is doubtful that if she smoked this much, she has any significant COPD. The patient is getting oxygen, by nasal cannula, at 3 L, saturations are 95%. He is also getting saline at 15 cc an hour. She was placed on DuoNebs, Symbicort, Rocephin, and doxycycline. We have ordered a N-terminal proBNP, and a procalcitonin level. Her chest x-ray was not particularly impressive, and her CAT scan shows some patchy infiltrates, left greater than right. We query as to whether or not she may have aspirated, or could these infiltrates actually represent some mild pulmonary edema. She does not appear to have much in the way of pneumonic symptoms. White count is 27.6, hemoglobin 14.2, hematocrit 43.7, and platelet count 234,000. Her D-dimer was 0.6. Sodium 139, potassium 3.8, chlorides 108, CO2 27, BUN and creatinine were 38 and 0.67. The patient's troponin was 5.170. There is no N-terminal pro BNP or procalcitonin level. Studies for influenza, RSV, coronavirus are all negative. The patient is seen today December 22, 2023 in follow-up on the selective care unit. She is currently sitting up in bed. Awake and alert in no acute distress. She is maintaining O2 saturations in the 90s on 3 L/min per nasal cannula. Procalcitonin was negative at 0.28. Antibiotics will be discontinued. She had been treated with ceftriaxone and doxycycline. She is on normal saline at [facility]. Denies any further complaints of chest discomfort. No new labs today. The patient is seen today December 23, 2023 in follow-up on the selective care unit. She is currently sitting up in bed. Awake and alert in no acute distress. Maintaining O2 saturations in the 90s on room air. White count 13.6. Hemoglobin 13.8. Platelets 222. Sodium 134. Potassium 3.6. Bicarb 28. BUN 27. Creatinine 0.70. Glucose 110. She is continued on albuterol as needed. Continued on Plavix and aspirin. Objective - Vital Signs Vital signs: Vital Signs Temp 98.1 F 12/23/23 08:00 Pulse 83 12/23/23 08:00 Resp 17 12/23/23 08:00 BP 119/65 12/23/23 08:00 Pulse Ox 92 L 12/23/23 08:00 FiO2 Intake & Output 12/22/23 12/23/23 12/23/23 18:59 06:59 18:59 Intake Total 938 540 222 Balance 938 540 222 Intake: Oral 938 540 222 Other: Voiding Method Diaper Diaper Incontinent Incontinent # Voids 1 1 - Exam GENERAL EXAM: Alert, thin 63-year-old female on room air, comfortable in no apparent distress. HEAD: Normocephalic. EYES: Normal reaction of pupils, equal size. NOSE: Clear with pink turbinates. THROAT: No erythema or exudates. NECK: No masses, no JVD. CHEST: No chest wall deformity. LUNGS: Equal air entry with no crackles, wheeze, rhonchi or dullness. CVS: S1 and S2 normal with no audible murmur, regular rhythm. ABDOMEN: No hepatosplenomegaly, normal bowel sounds, no guarding or rigidity. SPINE: No scoliosis or deformity SKIN: No rashes CENTRAL NERVOUS SYSTEM: No focal deficits, tone is normal in all 4 extremities. EXTREMITIES: There is no peripheral edema. No clubbing, no cyanosis. Peripheral pulses are intact. - Labs CBC & Chem 7: 12/23/23 07:46 12/23/23 07:46 Labs: Abnormal Lab Results - Last 24 Hours (Table) 12/23/23 12/23/23 Range/Units 07:46 07:46 WBC 13.6 H (3.8-10.6) k/uL Neutrophils # 9.9 H (1.3-7.7) k/uL Sodium 134 L (137-145) mmol/L BUN 27 H (7-17) mg/dL Glucose 110 H (74-99) mg/dL Assessment and Plan Assessment: ST segment elevation myocardial infarction, with evidence of a ruptured plaque, in the mid LAD, on catheterization performed on December 20, 2023 Doubt significant COPD, as the patient only smoked for 10 years, at 1 pack every 3 days Recent PFTs, showing about 10% lung volume loss Echocardiogram showing 20 to 25% ejection fraction Diffuse bilateral left greater than right infiltrates on CT scan, of unclear etiology Possible pneumonia History of neuropathy Ongoing tobacco use Plan: The patient was seen and evaluated Medications and labs reviewed Stable and on room air Cleared for discharge from the pulmonary standpoint I have personally seen and examined the patient, performed the documentation and the assessment and plan as written. Number of minutes spent on the visit: 10.
--- NOTE | 2023-12-23 10:53 | P.PN ---
Subjective Progress Note Date: 12/23/23 Reason for Consult (text): STEMI History of present illness: This is a 63-year-old female with past medical history of tobacco use. No previous cardiac history. Patient developed chest pain on Sunday but today it became much worse. She has had a fever and vomiting at home. She is resides in [place] but is here visiting her brother. EMS was called and patient was given aspirin 324 mg and 3 nitroglycerin. Pain is a #4. She also received Zofran. Blood pressure 131/103, sinus tachycardia in the 140s. EKG: Sinus with ST elevation in inferior and lateral leads Home cardiac medications: None 12/20 Yesterday, patient went for urgent cardiac catheterization with Dr. Ramires which revealed plaque rupture in the mid LAD without totally close vessel with no plan for intervention. Echocardiogram reveals EF of 20 to 25% with apical hypokinesis and basal sparing may be consistent with CAD versus Takotsubo's cardiomyopathy. RVSP 70, mild mitral regurgitation, moderate TR. Patient complains of vague symptoms of stomach ache and sore throat. She remains tachycardic today 110-1 120s. Yesterday, patient was started on aspirin, Lipitor, Plavix, losartan and Lopressor 25 mg 3 times daily. 12/21 Patient states she doesn't feel well with [place], neck ache which are all chronic. Discussed results of Echo with patient. She states she has been under a lot of stress from children. Blood pressure 105/56, heart rate 88, pulse ox 95% on 3 L nasal cannula. Yesterday Lopressor was increased to 50 mg twice daily. Patient appears to be stable at this time. No chest pain. 12/22 Patient continues to complain of generalized chronic pain. She also states that she has not been sleeping and she is nauseated and Zofran does not seem to be helping. She denies any chest pain or pressure. She states her breathing is a little bit rough and she is having a lot of coughing. Blood pressure 119/65, heart rate 83, pulse ox 92% on room air. Repeat blood work reveals WBC 13.6, hemoglobin 13.8. Sodium 134, potassium 3.6, BUN 27 creatinine 0.7. Physical examination: Gen: This is a thin 63-year-old female appears to be quite uncomfortable and ill-appearing VS: reviewed HEENT: Head is atraumatic, normocephalic. Pupils equal, round. Sclerae is anicteric. NECK: Supple. No JVD. LUNGS: Bilateral wheeze. No intercostal retractions. HEART: Regular rate and rhythm. ABDOMEN: Soft No tenderness. EXTREMITIES: No pedal edema. No calf tenderness. NEUROLOGICAL: Patient is awake, alert and oriented x3. Assessment: Inferior lateral STEMI Cardiomyopathy possible Takotsubo Hypertension Tobacco use and dependence Plan: Continue patient on the following cardiac medications: Aspirin 81 mg daily, Lipitor 40 mg daily, Plavix 75 mg daily, losartan 25 mg daily, Lopressor 50 mg twice daily Patient is cleared for discharge from cardiology. She may follow-up with a certified genetic counselor in [place] in the next 1 to 2 weeks. Nurse practitioner note has been reviewed, I agree with documented findings and plan of care. Patient was seen and examined. Objective - Vital Signs Vital signs: Vital Signs Temp 98.1 F 12/23/23 08:00 Pulse 83 12/23/23 08:00 Resp 17 12/23/23 08:00 BP 119/65 12/23/23 08:00 Pulse Ox 92 L 12/23/23 08:00 FiO2 Intake & Output 12/22/23 12/23/23 12/23/23 18:59 06:59 18:59 Intake Total 938 540 222 Balance 938 540 222 Intake: Oral 938 540 222 Other: Voiding Method Diaper Diaper Incontinent Incontinent # Voids 1 1 - Labs CBC & Chem 7: 12/23/23 07:46 12/23/23 07:46 Labs: Abnormal Lab Results - Last 24 Hours (Table) 12/23/23 12/23/23 Range/Units 07:46 07:46 WBC 13.6 H (3.8-10.6) k/uL Sodium 134 L (137-145) mmol/L BUN 27 H (7-17) mg/dL Glucose 110 H (74-99) mg/dL
--- NOTE | 2023-12-23 15:03 | P.PN ---
Subjective Progress Note Date: 12/23/23 Interval History: patient is a 63-year-old lady with past medical history significant for tobacco addiction, COPD who presented the hospital for chest pain and shortness of breath. Patient is a resident of [place] and is currently visiting his brother who lives in [place]. Patient stated that she was all right when on Sunday started experiencing chest pain that was central in location, intermittent, nonradiating. No aggravating or relieving factors for the chest pain. Chest pain did resolve Sunday but this morning she woke up with worsening chest pain. Patient also complaining of nausea and fatigue. There was no complaint of palpitation. Patient was complaining of shortness of breath. Patient also having fevers at home. Because of the symptoms, patient was brought to the ER Initial lab work done in the ER showed WBC 27.8, hemoglobin 14.8, platelet count 251, sodium 142, potassium 3.3, BUN 13, creatinine 0.77, glucose 206, calcium 10.9, AST 75, troponin 5.170 Influenza A not detected Influenza B not detected RSV not detected COVID-19 not detected EKG done in the ER showed heart rate of 135, ST segment elevation in leads II, III, aVF, V4 V5 and V6 Organizational Research Consultant was activated and patient was brought to Organizational Research Consultant Patient admitted to internal medicine service 12/20. Patient seen and examined. Cardiac cath done showed Plaque rupture in the mid LAD without totally closed vessel. Still complains of shortness of breath. Gets short of breath on exertion. CTA chest done showed bilateral pulmonary infiltrates. 12/21--patient was seen and examined today. Complaining of productive cough and shortness of breath. Pulmonary following, antibiotics discontinued as patient's procalcitonin was negative. 12/22--patient was seen and examined today. Patient was very anxious. Patient stated that her house does not have a power, patient is having trouble finding a place to go. Assessment and plan STEMIacute inferior wall ID Takotsubo cardiomyopathy Bacterial pneumonia--- finished antibiotics Doubt COPD: Tobacco addiction Deconditioning: Leukocytosis: Monitor vital signs Monitor labs Continue telemetry monitoring Cardiac cath done showed Plaque rupture in the mid LAD without totally closed vessel. Continue aspirin, Plavix, Lipitor, losartan Continue Lopressor 2D echo done showed LVEF of 25% with mainly apical hypokinesis could be consistent with coronary disease versus Takotsubo cardiomyopathy, mild mitral regurg, moderate tricuspid regurg Received several doxycyclinenow discontinued, procalcitonin negative, per pulmonary. e Cardiology consultedappreciate recs. Pulmonology consulted appreciate recs.-- PT/OT consulted DVT prophylaxis: SCD PHYSICAL EXAMINATION: GENERAL: The patient is A&O x3, NAD HEENT: EOMI, Sclerae anicteric, Moist Mucous membranes Neck: Supple, Non tender, No JVD CARDIOVASCULAR: S1, S2 present. No murmurs, rubs, or gallops. PULMONARY: Equal breath souds B/L, No wheezing, No crackles. ABDOMEN: Soft, nontender, nondistended, normoactive bowel sounds. No guarding or rebound tenderness. MUSCULOSKELETAL: No edema, No cyanosis. No clubbing. Normal ROM. Intact peripheral pulses. Skin; Warm. No rash. REVIEW OF SYSTEMS: CONSTITUTIONAL: No fever or chills. CARDIOVASCULAR: No chest pain, palpitations or syncope. PULMONARY: No shortness of breath, no cough, sore throat. GASTROINTESTINAL: No nausea, vomiting, diarrhea, abdominal pain. : No Dysuria, urgency, frequency. Extremities: No edema. NEUROLOGICAL: No headaches, no weakness, or numbness Dictation was produced using [employer] dictation software. please excuse any grammatical, word or spelling errors. Objective - Vital Signs Vital signs: Vital Signs Temp 98.4 F 12/23/23 11:30 Pulse 83 12/23/23 14:00 Resp 17 12/23/23 14:00 BP 118/74 12/23/23 11:30 Pulse Ox 96 12/23/23 11:30 FiO2 Intake & Output 12/22/23 12/23/23 12/23/23 18:59 06:59 18:59 Intake Total 938 540 462 Balance 938 540 462 Intake: Oral 938 540 462 Other: Voiding Method Diaper Diaper Diaper Incontinent Incontinent Incontinent # Voids 1 1 1 - Labs CBC & Chem 7: 12/23/23 07:46 12/23/23 07:46 Labs: Abnormal Lab Results - Last 24 Hours (Table) 12/23/23 12/23/23 Range/Units 07:46 07:46 WBC 13.6 H (3.8-10.6) k/uL Neutrophils # 9.9 H (1.3-7.7) k/uL Sodium 134 L (137-145) mmol/L BUN 27 H (7-17) mg/dL Glucose 110 H (74-99) mg/dL
[2023-12-24 08:53] VITALS: RESP 17
--- NOTE | 2023-12-24 10:45 | P.PN ---
Subjective Progress Note Date: 12/24/23 63-year-old female who presented to the emergency department on December 19, complaining of chest discomfort, nausea, and emesis. She apparently started having some chest pain a few days back. She also had nausea, fatigue, and the chest pain got worse, and she was brought to the ER, by EMS. She apparently was also found to have a saturations of 88%. We were consulted for possible underlying COPD. In the emergency room, the patient was noted to have a ST segment elevation, and, elevated troponin levels. She was taken to the catheterization laboratory and was found to have a ruptured plaque, the mid LAD. Medical management was recommended, by cardiology. Her chest pain was going on for at least 3 days. At home, the patient uses Valium, [place], oxycodone, Lyrica, and an albuterol inhaler. She apparently was an outside hospital recently, and had a pulmonary function test, was told that she had loss of about 10% lung function. When asked about her smoking history, she is only smoked for 10 years, at 1 pack every 3 days. It is doubtful that if she smoked this much, she has any significant COPD. The patient is getting oxygen, by nasal cannula, at 3 L, saturations are 95%. He is also getting saline at 15 cc an hour. She was placed on DuoNebs, Symbicort, Rocephin, and doxycycline. We have ordered a N-terminal proBNP, and a procalcitonin level. Her chest x-ray was not particularly impressive, and her CAT scan shows some patchy infiltrates, left greater than right. We query as to whether or not she may have aspirated, or could these infiltrates actually represent some mild pulmonary edema. She does not appear to have much in the way of pneumonic symptoms. White count is 27.6, hemoglobin 14.2, hematocrit 43.7, and platelet count 234,000. Her D-dimer was 0.6. Sodium 139, potassium 3.8, chlorides 108, CO2 27, BUN and creatinine were 38 and 0.67. The patient's troponin was 5.170. There is no N-terminal pro BNP or procalcitonin level. Studies for influenza, RSV, coronavirus are all negative. The patient is seen today December 22, 2023 in follow-up on the selective care unit. She is currently sitting up in bed. Awake and alert in no acute distress. She is maintaining O2 saturations in the 90s on 3 L/min per nasal cannula. Procalcitonin was negative at 0.28. Antibiotics will be discontinued. She had been treated with ceftriaxone and doxycycline. She is on normal saline at [facility]. Denies any further complaints of chest discomfort. No new labs today. The patient is seen today December 23, 2023 in follow-up on the selective care unit. She is currently sitting up in bed. Awake and alert in no acute distress. Maintaining O2 saturations in the 90s on room air. White count 13.6. Hemoglobin 13.8. Platelets 222. Sodium 134. Potassium 3.6. Bicarb 28. BUN 27. Creatinine 0.70. Glucose 110. She is continued on albuterol as needed. Continued on Plavix and aspirin. The patient is seen today December 24, 2023 in follow-up on the selective care unit. She is currently resting in bed. Awake and alert in no acute distress. She is maintaining good O2 saturations in the 90s on room air. No IV fluids. She remains on albuterol as needed. No new labs today. Objective - Vital Signs Vital signs: Vital Signs Temp 98.4 F 12/24/23 08:00 Pulse 78 12/24/23 08:00 Resp 17 12/24/23 08:00 BP 116/65 12/24/23 08:00 Pulse Ox 93 L 12/24/23 08:00 FiO2 Intake & Output 12/23/23 12/24/23 12/24/23 18:59 06:59 18:59 Intake Total 580 540 360 Balance 580 540 360 Intake: Oral 580 540 360 Other: Voiding Method Diaper Diaper Incontinent Incontinent # Voids 1 1 - Exam GENERAL EXAM: Alert, thin 63-year-old female resting in bed, on room air, in no apparent distress. HEAD: Normocephalic. EYES: Normal reaction of pupils, equal size. NOSE: Clear with pink turbinates. THROAT: No erythema or exudates. NECK: No masses, no JVD. CHEST: No chest wall deformity. LUNGS: Equal air entry with no crackles, wheeze, rhonchi or dullness. CVS: S1 and S2 normal with no audible murmur, regular rhythm. ABDOMEN: No hepatosplenomegaly, normal bowel sounds, no guarding or rigidity. SPINE: No scoliosis or deformity SKIN: No rashes CENTRAL NERVOUS SYSTEM: No focal deficits, tone is normal in all 4 extremities. EXTREMITIES: There is no peripheral edema. No clubbing, no cyanosis. Peripheral pulses are intact. - Labs CBC & Chem 7: 12/23/23 07:46 12/23/23 07:46 Assessment and Plan Assessment: ST segment elevation myocardial infarction, with evidence of a ruptured plaque, in the mid LAD, on catheterization performed on December 20, 2023 Doubt significant COPD, as the patient only smoked for 10 years, at 1 pack every 3 days Recent PFTs, showing about 10% lung volume loss Echocardiogram showing 20 to 25% ejection fraction Diffuse bilateral left greater than right infiltrates on CT scan, of unclear etiology Possible pneumonia History of neuropathy Ongoing tobacco use Plan: The patient was seen and evaluated Medications reviewed Stable and on room air Cleared for discharge I have personally seen and examined the patient, performed the documentation and the assessment and plan as written. Number of minutes spent on the visit: 10.
[2023-12-24 12:11] VITALS: BP 139/68; PULSE 60; TEMP 98.8
--- NOTE | 2023-12-24 16:47 | P.DS ---
Providers Date of admission: 12/20/23 10:03 Attending physician: Mary Farris Consults: 12/20/23 10:02 Consult Physician Stat Consulting Provider: [facility] Consult Reason/Comments: stemi Do you want consulting provider notified?: Already Contacted 12/21/23 11:17 Consult Physician Routine Consulting Provider: Juancarlos Owens Consult Reason/Comments: COPD, pneumonia Do you want consulting provider notified?: Yes Primary care physician: Physician Nonstaff Hospital Course: Hospital Course: Patient is a 63-year-old female with past medical history significant for tobacco addiction, COPD who presented the hospital for chest pain and shortness of breath. Patient is a resident of [place] and is currently visiting her brother who lives in [place]. Patient stated that she was all right when on Sunday she started experiencing chest pain that was central in location, intermittent, non-radiating. No aggravating or relieving factors for the chest pain. Chest pain did resolve Sunday but this morning she woke up with worsening chest pain. Patient also complaining of nausea and fatigue. There was no complaint of palpitation. Patient was complaining of shortness of breath. P atient also having fevers at home. Because of the symptoms, patient was brought to the ER. Initial lab work done in the ER showed troponin 5.170. EKG done in the ER showed heart rate of 135, ST segment elevation in leads II, III, aVF, V4 V5 and V6. Sausage Smoker was activated and patient was brought to Sausage Smoker. Patient admitted to internal medicine service. Cardiac catheterization done showed plaque rupture in the mid LAD without totally closed vessel. CTA chest done showed bilateral pulmonary infiltrates. Patient was placed on Rocephin and doxycycline for possible pneumonia - then discontinued due to negative procalcitonin levels. Pulmonary followed and diagnosed COPD; she required support with 3L nasal cannula and then transitioned to room air after 1 day. Pulmonary has cleared her for discharge on albuterol as needed. Cardiology has cleared her for discharge on PO Aspirin 81 mg daily, Lipitor 40 mg daily, Plavix 75 mg daily, losartan 25 mg daily, Lopressor 50 mg twice daily with instructions to follow up with a pasteurizer helper in [place] in the next 1 to 2 weeks. Final Diagnosis: #. Inferior lateral STEMI status post cardiac catheterization without intervention. #. COPD Chronic conditions: Hypertension, tobacco use and dependence, neuropathy Physical Examination GENERAL: A&O x3, NAD. HEENT: EOMI, sclerae anicteric, moist mucous membranes. Neck: Supple, nontender, no JVD. CARDIOVASCULAR: S1-S2 present; no murmurs, rubs, or gallops. PULMONARY: Equal breath sounds bilaterally; no wheezing or crackles. ABDOMEN: Soft, nontender, nondistended, normoactive bowel sounds; no guarding or rebound tenderness. MUSCULOSKELETAL: Normal ROM; intact peripheral pulses; no edema, cyanosis, or clubbing. Skin: Warm; no rash. Attestation: I have personally seen and examined the patient with Resident, reviewed the documentation and participated and agree with the assessment and plan as written. Patient Condition at Discharge: Stable Plan - Discharge Summary Discharge Rx Participant: Yes New Discharge Prescriptions: New Atorvastatin [Lipitor] 40 mg PO HS #30 tab Metoprolol Tartrate [Lopressor] 50 mg PO BID #30 tab Albuterol Inhaler [Ventolin Hfa Inhaler] 2 puff INHALATION RT-TID PRN each PRN Reason: Shortness Of Breath Or Wheezing Aspirin 81 mg PO DAILY #30 tab Losartan [Cozaar] 25 mg PO DAILY #30 tab Clopidogrel [Plavix] 75 mg PO DAILY #30 tab Continue HYDROcodone/APAP 10-325MG [[place] 10-325] 1 tab PO 5XD PRN PRN Reason: Breakthrough Pain oxyCODONE HCL [oxyCODONE HCL ER] 40 mg PO Q12H diazePAM [Valium] 5 mg PO BID Pregabalin [Lyrica] 150 mg PO BID Discharge Medication List HYDROcodone/APAP 10-325MG [[place] 10-325] 1 tab PO 5XD PRN 12/20/23 [History] Pregabalin [Lyrica] 150 mg PO BID 12/20/23 [History] diazePAM [Valium] 5 mg PO BID 12/20/23 [History] oxyCODONE HCL [oxyCODONE HCL ER] 40 mg PO Q12H 12/20/23 [History] Albuterol Inhaler [Ventolin Hfa Inhaler] 2 puff INHALATION RT-TID PRN each 12/24/23 [Rx] Aspirin 81 mg PO DAILY #30 tab 12/24/23 [Rx] Atorvastatin [Lipitor] 40 mg PO HS #30 tab 12/24/23 [Rx] Clopidogrel [Plavix] 75 mg PO DAILY #30 tab 12/24/23 [Rx] Losartan [Cozaar] 25 mg PO DAILY #30 tab 12/24/23 [Rx] Metoprolol Tartrate [Lopressor] 50 mg PO BID #30 tab 12/24/23 [Rx] Follow up Appointment(s)/Referral(s): Nonstaff,Physician [Primary Care Provider] - 1-2 days Reynaldo Ramires MD [STAFF PHYSICIAN] - 2 Weeks Patient Instructions/Handouts: *Surgery [facility] - After Heart Catheterization - Girl Friday Instructions, Heart Attack (GEN), Hypoxia (GEN) Activity/Diet/Wound Care/Special Instructions: low fat, low salt diet activity limited until follow up avoid bending/flexing wrist for 1 week do not submerge wrist in water if any bleeding occurs apply pressure and return to ER Discharge Disposition: HOME SELF-CARE
== END 2023-12-24 16:52 | disposition home or self-care (01) | DRG 280 ==
LOC: EC 09:47 → 2SICU 10:03 → 3SCARD 10:32
PROVIDERS: ADMIT Hospitalist; ATTEND Hospitalist
PROC: B2111ZZ Fluoroscopy of Multiple Coronary Arteries using Low Osmolar Contrast (ICD-10-PCS; 2023-12-20)
PROC: 4A023N7 Measurement of Cardiac Sampling and Pressure, Left Heart, Percutaneous Approach (ICD-10-PCS; principal; 2023-12-20 09:51)
DX: I21.19 ST elevation (STEMI) myocardial infarction involving other coronary artery of inferior wall (principal); J15.9 Unspecified bacterial pneumonia; I51.81 Takotsubo syndrome; J44.0 Chronic obstructive pulmonary disease with (acute) lower respiratory infection; F17.200 Nicotine dependence, unspecified, uncomplicated; G62.9 Polyneuropathy, unspecified; G89.29 Other chronic pain; I10 Essential (primary) hypertension; I48.91 Unspecified atrial fibrillation; R09.02 Hypoxemia; Z79.02 Long term (current) use of antithrombotics/antiplatelets; Z79.82 Long term (current) use of aspirin; Z79.899 Other long term (current) drug therapy; Z20.822 Contact with and (suspected) exposure to COVID-19
CPT/HCPCS: 36415; 71046; 71275; 80048; 80053; 80061; 81001; 83735; 83880; 84145; 84484; 85025; 85379; 85610; 85730; 87636; 93005; 93306; 93458; 94640; 94760; 96374; 96375; 99291